=== PATIENT | female | born 1955 | race Caucasian/White ===

== ENCOUNTER 2016-07-22 13:28 | Outpatient (CLI) | payer BC ==
[2016-07-22 18:17] LABS: BASOPHILS % (AUTO) 0.7 %; EOSINOPHILS % (AUTO) 0.9 %; HCT - HEMATOCRIT 42.4 % (37.0-47.0); HGB - HEMOGLOBIN 13.8 g/dL (12.0-16.0); LYMPHOCYTES # (AUTO) 1.3 10^3/uL (1.5-3.5); LYMPHOCYTES % (AUTO) 23.6 %; MEAN CORPUSCULAR HEMOGLOBIN 31.1 pg (27.0-31.0); MEAN CORPUSCULAR HGB CONC 32.6 g/dL (32.0-36.0); MEAN CORPUSCULAR VOLUME 95.4 fL (81.0-99.0); MONOCYTES # (AUTO) 0.4 10^3/uL (0.0-1.0); MONOCYTES % (AUTO) 6.9 %; NEUTROPHILS # (AUTO) 3.6 10^3/uL (1.5-6.6); NEUTROPHILS % (AUTO) 67.9 %; NUCLEATED RED BLOOD CELLS AUTO 0.1 /100WBC; RED BLOOD COUNT 4.44 10^6/uL (4.20-5.40); RED CELL DISTRIBUTION WIDTH 13.2 % (12.0-15.0); UNCORRECTED WHITE BLOOD COUNT 5.4 x10^3/uL; WHITE BLOOD COUNT 5.4 x10^3/uL (4.8-10.8)
[2016-07-22 18:44] LABS: ALBUMIN/GLOBULIN RATIO 1.4 (1.0-2.2); BILIRUBIN,TOTAL 1.2 mg/dL (0.2-1.0); BUN - BLOOD UREA NITROGEN 15 mg/dL (6-20); CALCIUM 9.4 mg/dL (8.5-10.3); CARBON DIOXIDE - CO2 26 mmol/L (21-32); CHLORIDE 104 mmol/L (101-111); CHOL/HDL RATIO 2.3 (<4.4); CHOLESTEROL 235 mg/dL; CREATININE 0.9 mg/dL (0.4-1.0); GFR - MDRD 63 (>89); GLUCOSE 95 mg/dL (70-100); HDL CHOLESTEROL 101 mg/dL; LDL/HDL RATIO 1.2 (<4.4); POTASSIUM 4.1 mmol/L (3.5-5.0); SODIUM 139 mmol/L (135-145); TRIGLYCERIDES 51 mg/dL; VLDL CHOLESTEROL 10 mg/dL
== END 2016-07-22 13:29 | disposition home or self-care (01) ==
LOC: LAB.F 13:28
PROVIDERS: ATTEND Nurse Practitioner Family
DX: Z00.00 Encounter for general adult medical examination without abnormal findings (principal); E55.9 Vitamin D deficiency, unspecified; E78.5 Hyperlipidemia, unspecified
CPT/HCPCS: 36415; 80053; 80061; 82306; 85025

== ENCOUNTER 2016-08-10 11:21 | Outpatient (CLI) | payer BC ==
--- NOTE | 2016-08-11 17:49 | Mammography Report ---
DIGITAL SCREENING MAMMOGRAM: 08/10/2016 CLINICAL INDICATION: A 61-year-old nulliparous patient with family history of breast cancer for scre ening. COMPARISON: 08/2014, 08/2013, 07/2012, 04/2012, 04/2011, 01/2010, 09/2008, 07/2007, 07/2006. TECHNIQUE: Routine CC and MLO projections were obtained of the breasts. FINDINGS: Parenchymal tissue within the breasts is predominantly fatty replaced. There are no domina nt masses, suspicious microcalcifications, or secondary signs of malignancy. In comparison to the pre vious studies, there are no significant changes. IMPRESSION: NO MAMMOGRAPHIC EVIDENCE OF MALIGNANCY. NO SIGNIFICANT INTERVAL CHANGES. RECOMMENDATION: Screening mammography is recommended annually. BI-RADS category 1 - negative. STANDARD QUALIFYING STATEMENTS 1. This examination was reviewed with the aid of Computed-Aided Detection (CAD). 2. A negative or benign imaging report should not delay biopsy if clinically suspicious findings are present. Consider surgical consultation if warranted. More than 5% of cancers are not identified by i maging. 3. Dense breasts may obscure an underlying neoplasm. JOB #: [id number] EXT JOB #:[id number]
== END 2016-08-10 11:22 | disposition home or self-care (01) ==
LOC: DI 11:21
PROVIDERS: ATTEND Nurse Practitioner Family
DX: Z12.31 Encounter for screening mammogram for malignant neoplasm of breast (principal); Z80.3 Family history of malignant neoplasm of breast
CPT/HCPCS: 77067

== ENCOUNTER 2017-08-10 13:22 | Outpatient (CLI) | payer BC ==
[2017-08-10 18:05] LABS: BASOPHILS # (AUTO) 0.1 10^3/uL (0.0-0.1); BASOPHILS % (AUTO) 1.1 %; EOSINOPHILS # (AUTO) 0.1 10^3/uL (0.0-0.7); EOSINOPHILS % (AUTO) 1.4 %; LYMPHOCYTES # (AUTO) 1.3 10^3/uL (1.5-3.5); LYMPHOCYTES % (AUTO) 24.3 %; MEAN CORPUSCULAR HEMOGLOBIN 32.1 pg (27.0-31.0); MEAN CORPUSCULAR VOLUME 97.3 fL (81.0-99.0); MEAN PLATELET VOLUME 9.5 fL (7.9-10.8); MONOCYTES # (AUTO) 0.5 10^3/uL (0.0-1.0); MONOCYTES % (AUTO) 8.6 %; NEUTROPHILS # (AUTO) 3.5 10^3/uL (1.5-6.6); NEUTROPHILS % (AUTO) 64.6 %; PLT - PLATELET COUNT 281 10^3/uL (130-450); RED BLOOD COUNT 4.36 10^6/uL (4.20-5.40); RED CELL DISTRIBUTION WIDTH 13.4 % (12.0-15.0); WHITE BLOOD COUNT 5.5 x10^3/uL (4.8-10.8)
[2017-08-10 18:38] LABS: ALBUMIN 3.7 g/dL (3.2-5.5); ALBUMIN/GLOBULIN RATIO 1.2 (1.0-2.2); ALKALINE PHOSPHATASE 37 IU/L (42-121); ALT ALANINE AMINOTRANSFERASE 17 IU/L (10-60); AST ASPARTATE AMINOTRANSFERASE 22 IU/L (10-42); BILIRUBIN,TOTAL 0.9 mg/dL (0.2-1.0); BUN - BLOOD UREA NITROGEN 13 mg/dL (6-20); CALCIUM 9.4 mg/dL (8.5-10.3); CARBON DIOXIDE - CO2 28 mmol/L (21-32); CHLORIDE 101 mmol/L (101-111); CHOL/HDL RATIO 2.6 (<4.4); CHOLESTEROL 236 mg/dL; CREATININE 0.9 mg/dL (0.4-1.0); GFR - MDRD 63 (>89); GLUCOSE 83 mg/dL (70-100); HDL CHOLESTEROL 90 mg/dL; LDL CHOLESTEROL,CALCULATED 131 mg/dL; LDL/HDL RATIO 1.5 (<4.4); SODIUM 138 mmol/L (135-145); TOTAL PROTEIN 6.9 g/dL (6.7-8.2); VLDL CHOLESTEROL 15 mg/dL
[2017-08-10 19:57] LABS: DIFFERENTIAL COMMENT MANUAL=AUTO DIFF
== END 2017-08-10 13:23 | disposition home or self-care (01) ==
LOC: LAB.F 13:22
PROVIDERS: ATTEND Nurse Practitioner Family
DX: Z00.00 Encounter for general adult medical examination without abnormal findings (principal); E55.9 Vitamin D deficiency, unspecified; E78.5 Hyperlipidemia, unspecified
CPT/HCPCS: 36415; 80053; 80061; 82306; 83721; 85025

== ENCOUNTER 2017-10-21 16:54 | Emergency (ER) | payer BC ==
--- NOTE | 2017-10-21 17:57 | XRAY Report ---
Reason: swelling and pain Procedure Date: 10/21/2017 Accession Number: [id number] / [id number] Procedure: XR - Knee 4 View RT CPT Code: FULL RESULT: EXAM: RIGHT KNEE RADIOGRAPHY EXAM DATE: 10/21/2017 05:31 PM. CLINICAL HISTORY: Right knee pain and swelling COMPARISON: None. TECHNIQUE: 4 views. FINDINGS: Bones: No acute fracture. Mild osteopenia. Joints: Large effusion. Mild medial compartment joint space narrowing and osteophyte formation. Subchondral irregularity in all 3 compartments. No subluxation. Soft Tissues: No focal soft tissue swelling. IMPRESSION: 1. No acute osseus abnormality. Large effusion. 2. Mild tricompartmental osteoarthrosis. RADIA
--- NOTE | 2017-10-21 20:01 | ED Physician Documentation ---
PD HPI LOWER EXT INJURY - Stated complaint Stated Complaint: R KNEE PX - Chief complaint Chief Complaint: Ext Problem - History obtained from History obtained from: Patient - Additional information Additional information: 62-year-old female presents the emergency department with pain and swelling in her right knee for the past several days. The patient was recently on a boat but denies any direct trauma but was doing a significant amount of work on the sailboat. The patient denies pain or swelling in her lower extremity or calf. Symptoms are described as moderate. No relieving factors. No fevers or chills Review of Systems Constitutional: denies: Fever, Chills Ears: denies: Ear pain Nose: denies: Rhinorrhea / runny nose Throat: denies: Sore throat Cardiac: denies: Chest pain / pressure Respiratory: denies: Dyspnea Musculoskeletal: reports: Joint pain, Joint swelling. denies: Extremity pain, Extremity swelling Neurologic: denies: Generalized weakness PD PAST MEDICAL HISTORY - Past Medical History Past Medical History: Yes Cardiovascular: Hypertension Respiratory: Asthma GI: GERD - Past Surgical History Past Surgical History: No - Present Medications Home Medications: Ambulatory Orders Medication Instructions Recorded Confirmed Benzonatate [Tessalon Perle] 100 mg PO Q4-6H PRN #20 capsule 08/27/12 Doxycycline [Vibramycin] 100 mg PO BID #14 tablet 08/27/12 Famotidine 40 mg PO DAILY 08/27/12 08/27/12 Quinapril HCl [Accupril] 20 mg PO DAILY 08/27/12 08/27/12 Spironolactone [Aldactone] 50 mg PO DAILY 08/27/12 08/27/12 guaiFENesin/CODEINE [Robitussin AC] 10 ml PO Q6H PRN #120 ml 08/27/12 predniSONE [Deltasone] 40 mg PO DAILY 5 Days tablet 08/27/12 - Allergies Allergies/Adverse Reactions: Allergies Allergy/AdvReac Type Severity Reaction Status Date / Time No Known Drug Allergies Allergy Verified 10/21/17 17:16 - Social History Does the pt smoke?: No Smoking Status: Never smoker Does the pt drink ETOH?: Yes ETOH Use: Wine Does the pt have substance abuse?: No - Immunizations Immunizations are current?: No Immunizations: TDAP >10years/unknown - POLST Patient has POLST: No PD ED PE NORMAL - General General: Alert and oriented X 3, No acute distress - HEENT HEENT: Atraumatic, PERRL, EOMI, Ears normal - Neck Neck: Supple, no meningeal sign - Derm Derm: Normal color - Extremities Extremities: No calf tenderness / cord, Other (The patient has swelling of the right knee, there is no erythematous changes or signs of abscess. The patient has decreased range of motion in the right knee and tenderness to palpation diffusely. There is no cellulitis or abscess. The patient has a normal dorsalis pedis pulse and normal cap refill. The patient has no swelling of the lower extremity or pain in the calf) - Neuro Neuro: Alert and oriented X 3, No motor deficit Results - Vitals Vitals: Vital Signs - 24 hr 10/21/17 10/21/17 17:11 20:06 Temperature 36.6 C 36.4 C L Heart Rate 68 65 Respiratory 16 16 Rate Blood Pressure 107/62 123/77 O2 Saturation 100 99 Oxygen O2 Source Room air - Rads (name of study) X-ray knee Radiology: Final report received (1. No acute osseus abnormality. Large effusion 2. Mild tricompartmental osteoarthrosis. ) PD MEDICAL DECISION MAKING - ED course ED course: I explained to the patient that spontaneous knee swelling and pain could be from septic arthritis and recommended arthrocentesis. I discussed with the patient the procedure and the lab work required. The patient has declined this. The patient does not feel that this is infectious and prefers discharge and will follow up with orthopedics. I explained to her the risks of an undiagnosed condition and septic arthritis and the possibility of significant disability and potentially . The patient understands and agrees. I discussed warning signs and recommended returning to the emergency department immediately for any worsening or any concerns. - Sepsis Event Vital Signs: Vital Signs - 24 hr 10/21/17 10/21/17 17:11 20:06 Temperature 36.6 C 36.4 C L Heart Rate 68 65 Respiratory 16 16 Rate Blood Pressure 107/62 123/77 O2 Saturation 100 99 Oxygen O2 Source Room air Departure - Departure Disposition: 01 Home, Self Care Clinical Impression: Swelling of knee joint Qualifiers: Laterality: unspecified laterality Qualified Code(s): M25.469 - Effusion, unspecified knee Condition: Good Follow-Up: Loki Bundy MD [Provider Admit Priv/Credential] - (Call to schedule a follow-up appointment) Comments: You declined to have a arthrocentesis (a knee tap)to further evaluate your knee swelling and to rule out an infection of the knee. You understand the risks of the knee infection which could include significant disability, sepsis or . Please return to the emergency department at any point for reevaluation Discharge Date/Time: 10/21/17 20:07
[2017-10-21 20:08] VITALS: BP 123/77
== END 2017-10-21 20:07 | disposition home or self-care (01) ==
LOC: ED 16:54
DX: M25.461 Effusion, right knee (principal); I10 Essential (primary) hypertension
CPT/HCPCS: 99282; 99283

== ENCOUNTER 2018-01-03 13:32 | Outpatient (CLI) | payer BC ==
--- NOTE | 2018-01-05 11:10 | Mammography Report ---
Reason: ANNUAL SCREENING Procedure Date: 01/03/2018 Accession Number: [id number] / [id number] Procedure: ROCKY - Screening Mammo w/[place] CPT Code: FULL RESULT: EXAM: Screening Mammo w/[place] DATE: 01/03/2018 2:20 PM CLINICAL HISTORY: 62 year-old nulliparous female with family history of breast cancer in the mother at age 70 for screening. TECHNIQUE: Bilateral CC and MLO views were obtained. COMPARISON: 08/10/2016, 09/03/2014, 09/21/2013, 04/11/2012. FINDINGS: The breasts demonstrate scattered fibroglandular densities bilaterally. No suspicious masses, clustered microcalcifications, or regions of architectural distortion are identified. IMPRESSION: Negative examination RECOMMENDATION: Routine annual screening unless otherwise clinically indicated. BIRADS CATEGORY 1: Negative STANDARD QUALIFYING STATEMENTS: 1. This examination was not reviewed with the aid of Computer-Aided Detection (CAD). 2. A negative or benign imaging report should not delay biopsy if clinically suspicious findings are present. Consider surgical consultation if warrented. More than 5% of cancers are not identified by imaging. 3. Dense breasts may obscure an underlying neoplasm. 4. This examination was reviewed with the aid of 3D breast imaging (tomosynthesis).
== END 2018-01-03 13:33 | disposition home or self-care (01) ==
LOC: DI 13:32
DX: Z12.31 Encounter for screening mammogram for malignant neoplasm of breast (principal); Z80.3 Family history of malignant neoplasm of breast
CPT/HCPCS: 77063; 77067

== ENCOUNTER 2019-02-08 12:57 | Outpatient (CLI) | payer BC ==
--- NOTE | 2019-02-09 08:00 | Mammography Report ---
Reason: SCREENING MAMMO Procedure Date: 02/08/2019 Accession Number: [id number] / [id number] Procedure: MGS - Screening Mammo Dig Bilat CPT Code: Final Report FULL RESULT: EXAM: Screening Mammo Dig Bilat DATE: 02/08/2019 1:12 PM CLINICAL HISTORY: Screening encounter. Family history of breast cancer in the mother at the age of 70. History of nulliparity. TECHNIQUE: (B) - Bilateral CC and MLO views were obtained. COMPARISON: 01/03/2018 through 09/21/2013. PARENCHYMAL PATTERN: (A) - The breast(s) demonstrate(s) scattered fibroglandular densities. FINDINGS: There are no suspicious masses, calcifications, or areas of distortion. IMPRESSION: Negative examination. BI-RADS category 1. RECOMMENDATION: (ANNUAL) - Recommend routine annual screening mammography. BI-RADS CATEGORY: (1) - Negative. STANDARD QUALIFYING STATEMENTS: 1. This examination was reviewed with the aid of Computer-Aided Detection (CAD). 2. A negative or benign imaging report should not preclude biopsy if clinically suspicious findings are present. 3. Dense breasts may obscure an underlying neoplasm. 4. This examination was reviewed without the aid of 3D breast imaging (tomosynthesis).
== END 2019-02-08 12:58 | disposition home or self-care (01) ==
LOC: DI.S 12:57
PROVIDERS: ATTEND Nurse Practitioner Family
DX: Z12.31 Encounter for screening mammogram for malignant neoplasm of breast (principal); Z80.3 Family history of malignant neoplasm of breast
CPT/HCPCS: 77067

== ENCOUNTER 2019-02-08 13:03 | Outpatient (CLI) | payer BC ==
[2019-02-08 19:03] LABS: BASOPHILS % (AUTO) 0.7 %; EOSINOPHILS # (AUTO) 0.1 10^3/uL (0.0-0.7); EOSINOPHILS % (AUTO) 1.7 %; HGB - HEMOGLOBIN 14.2 g/dL (12.0-16.0); LYMPHOCYTES # (AUTO) 1.2 10^3/uL (1.5-3.5); LYMPHOCYTES % (AUTO) 21.7 %; MEAN CORPUSCULAR HEMOGLOBIN 31.7 pg (27.0-31.0); MEAN CORPUSCULAR HGB CONC 32.9 g/dL (32.0-36.0); MEAN CORPUSCULAR VOLUME 96.4 fL (81.0-99.0); MEAN PLATELET VOLUME 11.1 fL (7.9-10.8); MONOCYTES # (AUTO) 0.5 10^3/uL (0.0-1.0); MONOCYTES % (AUTO) 8.4 %; NEUTROPHILS # (AUTO) 3.8 10^3/uL (1.5-6.6); PLT - PLATELET COUNT 279 10^3/uL (130-450); RED BLOOD COUNT 4.48 10^6/uL (4.20-5.40); RED CELL DISTRIBUTION WIDTH 12.6 % (12.0-15.0); WHITE BLOOD COUNT 5.7 x10^3/uL (4.8-10.8)
[2019-02-08 19:37] LABS: ALBUMIN/GLOBULIN RATIO 1.2 (1.0-2.2); ALKALINE PHOSPHATASE 43 IU/L (42-121); ALT ALANINE AMINOTRANSFERASE 15 IU/L (10-60); AST ASPARTATE AMINOTRANSFERASE 21 IU/L (10-42); BILIRUBIN,TOTAL 1.3 mg/dL (0.2-1.0); BUN - BLOOD UREA NITROGEN 15 mg/dL (6-20); CALCIUM 9.3 mg/dL (8.5-10.3); CARBON DIOXIDE - CO2 26 mmol/L (21-32); CHLORIDE 106 mmol/L (101-111); CHOL/HDL RATIO 2.9 (<4.4); CHOLESTEROL 241 mg/dL; CREATININE 0.9 mg/dL (0.4-1.0); GFR - MDRD 63 (>89); GLUCOSE 108 mg/dL (70-100); HDL CHOLESTEROL 83 mg/dL; LDL CHOLESTEROL,CALCULATED 142 mg/dL; LDL/HDL RATIO 1.7 (<4.4); SODIUM 139 mmol/L (135-145); TOTAL PROTEIN 7.4 g/dL (6.7-8.2); VLDL CHOLESTEROL 16 mg/dL
== END 2019-02-08 13:04 | disposition home or self-care (01) ==
LOC: LAB.S 13:03
PROVIDERS: ATTEND Nurse Practitioner Family
DX: Z00.00 Encounter for general adult medical examination without abnormal findings (principal); E55.9 Vitamin D deficiency, unspecified; E78.5 Hyperlipidemia, unspecified
CPT/HCPCS: 36415; 80053; 80061; 82306; 83721; 85025

== ENCOUNTER 2019-05-01 10:52 | Day surgery (SDC) | payer MEDICARE ==
[2019-05-01] MEDS ORDERED: CEFAZOLIN SODIUM IN 0.9 % NACL 2 GM/100 ML BAG IV ONE (10:57)
[2019-05-01] MEDS ORDERED: LACTATED RINGERS 1,000 ML IV ONE (11:29)
--- NOTE | 2019-05-01 12:39 | ANESTHESIA ---
Pre-Anesthesia VS, & Labs - Diagnosis Left nipple lesion - Procedure Left breast nipple excision of lesion/biopsy Vital Signs: Temp Pulse Resp BP Pulse Ox 36.8 C 74 18 119/73 100 05/01/19 11:06 05/01/19 11:06 05/01/19 11:06 05/01/19 11:06 05/01/19 11:06 Height 5 ft 6 in Weight (kg) 78 kg Body Mass Index 25.8 - NPO >8 hours - Is Patient ?: No Home Medications and Allergies Home Medications: Ambulatory Orders Cholecalciferol (Vitamin D3) [Vitamin D3] 2,000 unit PO DAILY 04/28/19 Lactobacillus Acidophilus [Probiotic Acidophilus] 1 each PO DAILY 04/28/19 Quinapril HCl [Accupril] 20 mg PO DAILY 08/27/12 Spironolactone [Aldactone] 50 mg PO DAILY 08/27/12 Cholecalciferol (Vitamin D3) [Vitamin D3] 2,000 unit PO DAILY 04/28/19 Lactobacillus Acidophilus [Probiotic Acidophilus] 1 each PO DAILY 04/28/19 Allergies/Adverse Reactions: Allergies Allergy/AdvReac Type Severity Reaction Status Date / Time No Known Drug Allergies Allergy Verified 10/21/17 17:16 Anes History & Medical History - Anesthetic History Family history of Anesthesia Complications: Denies Family history of Malignant Hyperthermia: Denies - Medical History Cardiovascular: reports: Hypertension Pulmonary: reports: Asthma (last inhalor use years ago. only active when around cats) Gastrointestinal: reports: GERD Urinary: reports: None Neuro: reports: None Musculoskeletal: reports: None Endocrine/Autoimmune: reports: None Blood Disorders: reports: None Skin: reports: None Smoking Status: Former smoker (quit 30 years ago) Psychosocial: reports: No issues indicated - Surgical History General: Colonoscopy Exam General: Alert, Oriented x3, Cooperative, No acute distress Dental: WNL Mouth Openin Fingerbreadth Neck Mobility: Normal Mallampati classification: IV Thyromental Distance: 4-6 cm Respiratory: Lungs clear, Normal breath sounds, No respiratory distress, No accessory muscle use Cardiovascular: Regular rate, Normal S1, Normal S2, No murmurs Mental/Cognitive Status: Alert/Oriented X3, Normal for patient Plan Anesthesia Type: General Consent for Procedure(s) Verified and Reviewed: Yes Code Status: Attempt Resuscitation ASA classification: 2-Mild systemic disease Is this case an emergency?: No
[2019-05-01] MEDS ORDERED: BUPIVACAINE 0.25% PF 30 ML VIAL ONE (12:47)
[2019-05-01] MEDS ORDERED: PROPOFOL 200 MG/20 ML VIAL IVP ONE (13:00)
[2019-05-01] MEDS ORDERED: PHENYLEPHRINE 10 MG/ML VIAL IV ONE (13:00)
[2019-05-01] MEDS ORDERED: fentaNYL 100 MCG/2 ML VIAL IVP ONE (13:00)
[2019-05-01] MEDS ORDERED: MIDAZOLAM 2 MG/2 ML VIAL IVP ONE (13:00)
[2019-05-01] MEDS ORDERED: ONDANSETRON 4 MG/2 ML VIAL IVP ONE (13:00)
[2019-05-01] MEDS ORDERED: BUPIVACAINE 0.25% PF 30 ML VIAL SUBQ ONE (13:26)
[2019-05-01] MEDS ORDERED: ONDANSETRON 4 MG/2 ML VIAL IVP PRN (13:35)
[2019-05-01] MEDS ORDERED: oxyCODONE 5 MG TABLET PO PRN (13:35)
--- NOTE | 2019-05-01 13:35 | OPERATIVE REPORT ---
Operative Report - General Procedure Date: 05/01/19 Planned Procedure: Left nipple biopsy Pre-Op Diagnosis: Left nipple lesion Procedure Performed: Wedge resection of the left nipple Post Op Diagnosis: Same - Procedure Note Primary Surgeon: Oralia Anesthesia Provider: AMAYA Laurent Anesthesia Technique: General LMA, Local Pathology: Portion of left nipple to pathology in formalin Estimated Blood Loss (mL): 5 Complications: None apparent - Other Other Information/Narrative: After obtaining informed consent, the patient is brought the operating room placed in supine position on the operating table. Following successful induction of general anesthesia, appropriate padding of all bony prominences, and placement of appropriate monitors, the left chest and breast were prepped and draped in the standard surgical fashion. A timeout was held per scope protocol. All elements of the surgical safety checklist were followed before, during, and after the procedure. Following infiltration with local anesthetic create a field block, an elliptical incision was fashioned around the most affected lateral edge of the nipple areolar complex. Approximately 1 cm length of tissue was removed and passed from the table as a specimen for full-thickness biopsy. The wound was then checked for hemostasis. The edges were reapproximated with Vicryl suture and chromic suture was applied to the skin. All sponge, needle, and instrument counts were correct at the conclusion of the case the patient was allowed awaken anesthesia without difficulty and taken to the postanesthesia care unit in good condition.
[2019-05-01 14:19] VITALS: BP 92/55
== END 2019-05-01 10:53 | disposition home or self-care (01) ==
LOC: SDS 10:52
PROVIDERS: ATTEND Surgery
PROC: 0HBX0ZX Excision of Left Nipple, Open Approach, Diagnostic (ICD-10-PCS; principal; 2019-05-01 12:00)
DX: N62 Hypertrophy of breast (principal); Z80.3 Family history of malignant neoplasm of breast; J45.909 Unspecified asthma, uncomplicated; I10 Essential (primary) hypertension; Z87.891 Personal history of nicotine dependence; Z79.899 Other long term (current) drug therapy
CPT/HCPCS: 19101; J0690; J7120

== ENCOUNTER 2020-07-02 08:00 | Outpatient (CLI) | payer MEDICARE ==
[2020-07-02 17:53] LABS: BASOPHILS # (AUTO) 0.1 10^3/uL (0.0-0.1); BASOPHILS % (AUTO) 0.9 %; EOSINOPHILS # (AUTO) 0.1 10^3/uL (0.0-0.7); EOSINOPHILS % (AUTO) 1.5 %; HGB - HEMOGLOBIN 14.2 g/dL (12.0-16.0); LYMPHOCYTES # (AUTO) 1.6 10^3/uL (1.5-3.5); LYMPHOCYTES % (AUTO) 30.5 %; MEAN CORPUSCULAR HEMOGLOBIN 31.5 pg (27.0-31.0); MEAN CORPUSCULAR HGB CONC 32.3 g/dL (32.0-36.0); MEAN CORPUSCULAR VOLUME 97.6 fL (81.0-99.0); MEAN PLATELET VOLUME 11.2 fL (7.9-10.8); MONOCYTES # (AUTO) 0.4 10^3/uL (0.0-1.0); MONOCYTES % (AUTO) 7.2 %; NEUTROPHILS # (AUTO) 3.2 10^3/uL (1.5-6.6); NEUTROPHILS % (AUTO) 59.7 %; PLT - PLATELET COUNT 250 10^3/uL (130-450); RED BLOOD COUNT 4.51 10^6/uL (4.20-5.40); RED CELL DISTRIBUTION WIDTH 12.5 % (12.0-15.0); WHITE BLOOD COUNT 5.3 x10^3/uL (4.8-10.8)
[2020-07-02 18:18] LABS: ALBUMIN 4.4 g/dL (3.2-5.5); ALBUMIN/GLOBULIN RATIO 1.5 (1.0-2.2); ALKALINE PHOSPHATASE 47 IU/L (42-121); ALT ALANINE AMINOTRANSFERASE 14 IU/L (10-60); AST ASPARTATE AMINOTRANSFERASE 20 IU/L (10-42); BILIRUBIN,TOTAL 1.1 mg/dL (0.2-1.0); BUN - BLOOD UREA NITROGEN 18 mg/dL (6-20); CALCIUM 9.5 mg/dL (8.5-10.3); CARBON DIOXIDE - CO2 28 mmol/L (21-32); CHLORIDE 103 mmol/L (101-111); CHOL/HDL RATIO 2.8 (<4.4); CHOLESTEROL 282 mg/dL; GFR - MDRD 55 (>89); GLUCOSE 90 mg/dL (70-100); HDL CHOLESTEROL 99 mg/dL; LDL CHOLESTEROL,CALCULATED 169 mg/dL; LDL/HDL RATIO 1.7 (<4.4); POTASSIUM 4.5 mmol/L (3.5-5.0); SODIUM 142 mmol/L (135-145); TOTAL PROTEIN 7.4 g/dL (6.7-8.2); TRIGLYCERIDES 71 mg/dL; VLDL CHOLESTEROL 14 mg/dL
[2020-07-02 18:21] LABS: THYROID STIMULATING HORMONE 1.07 uIU/mL (0.34-5.60)
[2020-07-03 12:46] LABS: HEPATITIS C ANTIBODY NON-REACTIVE (NON-REACTIVE)
== END 2020-07-02 23:59 | disposition home or self-care (01) ==
LOC: LAB.WCP 08:00
PROVIDERS: ATTEND Registered Nurse
DX: N28.9 Disorder of kidney and ureter, unspecified (principal); I10 Essential (primary) hypertension; J45.909 Unspecified asthma, uncomplicated; Z11.59 Encounter for screening for other viral diseases
CPT/HCPCS: 36415; 80053; 80061; 83721; 84443; 85025; 86803

== ENCOUNTER 2021-04-08 12:49 | Outpatient (CLI) | payer MEDICARE ==
[2021-04-08 15:00] LABS: ALBUMIN 3.9 g/dL (3.2-5.5); ALBUMIN/GLOBULIN RATIO 1.2 (1.0-2.2); ALKALINE PHOSPHATASE 40 IU/L (42-121); ALT ALANINE AMINOTRANSFERASE 14 IU/L (10-60); AST ASPARTATE AMINOTRANSFERASE 22 IU/L (10-42); BILIRUBIN,TOTAL 1.3 mg/dL (0.2-1.0); BUN - BLOOD UREA NITROGEN 16 mg/dL (6-20); CALCIUM 9.1 mg/dL (8.5-10.3); CARBON DIOXIDE - CO2 27 mmol/L (21-32); CHLORIDE 99 mmol/L (101-111); CHOL/HDL RATIO 2.7 (<4.4); CHOLESTEROL 252 mg/dL; GFR - MDRD 55 (>89); GLUCOSE 93 mg/dL (70-100); HDL CHOLESTEROL 93 mg/dL; LDL CHOLESTEROL,CALCULATED 143 mg/dL; LDL/HDL RATIO 1.5 (<4.4); POTASSIUM 4.3 mmol/L (3.5-5.0); SODIUM 136 mmol/L (135-145); TOTAL PROTEIN 7.2 g/dL (6.7-8.2); TRIGLYCERIDES 78 mg/dL; VLDL CHOLESTEROL 16 mg/dL
[2021-04-08 15:06] LABS: BASOPHILS % (AUTO) 0.7 %; EOSINOPHILS # (AUTO) 0.1 10^3/uL (0.0-0.7); EOSINOPHILS % (AUTO) 1.5 %; HCT - HEMATOCRIT 41.3 % (37.0-47.0); HGB - HEMOGLOBIN 13.6 g/dL (12.0-16.0); LYMPHOCYTES # (AUTO) 1.3 10^3/uL (1.5-3.5); LYMPHOCYTES % (AUTO) 21.7 %; MEAN CORPUSCULAR HEMOGLOBIN 31.9 pg (27.0-31.0); MEAN CORPUSCULAR HGB CONC 32.9 g/dL (32.0-36.0); MEAN CORPUSCULAR VOLUME 96.9 fL (81.0-99.0); MONOCYTES # (AUTO) 0.4 10^3/uL (0.0-1.0); MONOCYTES % (AUTO) 7.1 %; NEUTROPHILS # (AUTO) 4.2 10^3/uL (1.5-6.6); NEUTROPHILS % (AUTO) 68.7 %; PLT - PLATELET COUNT 273 10^3/uL (130-450); RED BLOOD COUNT 4.26 10^6/uL (4.20-5.40); RED CELL DISTRIBUTION WIDTH 12.2 % (12.0-15.0); WHITE BLOOD COUNT 6.1 x10^3/uL (4.8-10.8)
[2021-04-08 15:32] LABS: THYROID STIMULATING HORMONE 1.36 uIU/mL (0.34-5.60)
== END 2021-04-08 12:50 | disposition home or self-care (01) ==
LOC: LAB.S 12:49
PROVIDERS: ATTEND Registered Nurse
DX: I10 Essential (primary) hypertension (principal); N28.9 Disorder of kidney and ureter, unspecified; K21.9 Gastro-esophageal reflux disease without esophagitis; J45.909 Unspecified asthma, uncomplicated
CPT/HCPCS: 36415; 80053; 80061; 83721; 84443; 85025

== ENCOUNTER 2021-05-12 14:59 | Outpatient (CLI) | payer MEDICARE ==
--- NOTE | 2021-05-13 08:47 | Mammography Report ---
BILATERAL DIGITAL SCREENING MAMMOGRAM 3D/2D: 05/12/2021 CLINICAL: Routine screening. Family history of breast cancer. Comparison is made to exams dated: 09/21/2013 mammogram, 01/03/2018 mammogram, 08/10/2016 mammogram, 09/03/2014 mammogram, and 02/08/2019 mammogram - [facility]. The tissue of both breast s is predominantly fatty. No significant masses, calcifications, or other findings are seen in either breast. There has been no significant interval change. IMPRESSION: NEGATIVE There is no mammographic evidence of malignancy. A 1 year screening mammogram is recommended. This exam was interpreted at Station ID: [id number]. NOTE: For mammograms, a report in lay terms will be sent to the patient. Approximately 15% of breast malignancies will not be visualized mammographically. In the management of a palpable breast mass, a negative mammogram must not discourage biopsy of a clinically suspicious lesion. Electronically Signed By: Larry Alvarado M.D. aty/[email or web address]:05/13/2021 08:33:43 ACR BI-RADS Category 1: Negative 3341F PARENCHYMAL PATTERN: (F) - The breast(s) demonstrate(s) diffuse fatty replacement. BI-RADS CATEGORY: (1) - 1 RECOMMENDATION: (ANNUAL) - Recommend routine annual screening mammography. [id number] 1 year screening LATERALITY: (B)
== END 2021-05-12 15:00 | disposition home or self-care (01) ==
LOC: DI.S 14:59
PROVIDERS: ATTEND Registered Nurse
DX: Z12.31 Encounter for screening mammogram for malignant neoplasm of breast (principal); Z80.3 Family history of malignant neoplasm of breast

== ENCOUNTER 2021-08-16 17:55 | Outpatient (CLI) | payer MEDICARE ==
[2021-08-16 21:25] LABS: BACTERIAL VAGINOSIS DNA NEGATIVE (NEGATIVE); CANDIDA GLABRATA DNA NEGATIVE (NEGATIVE); CANDIDA GROUP DNA POSITIVE (NEGATIVE); CANDIDA KRUSEI DNA NEGATIVE (NEGATIVE); TRICHOMONAS VAGINALIS DNA NEGATIVE (NEGATIVE)
== END 2021-08-16 17:56 | disposition home or self-care (01) ==
LOC: LAB 17:55
PROVIDERS: ATTEND Registered Nurse
DX: L29.8 Other pruritus (principal)
CPT/HCPCS: 81514

== ENCOUNTER 2021-09-17 08:00 | Outpatient (CLI) | payer MEDICARE ==
--- NOTE | 2021-09-17 13:58 | XRAY Report ---
PROCEDURE: Ribs w/PA Chest LT INDICATIONS: LEFT SIDED RIB PAIN TECHNIQUE: 3 views of the left ribs were acquired, along with a single view chest. COMPARISON: None FINDINGS: Surgical changes and devices: None. Bones and chest wall: No fractures or dislocations. No suspicious bony lesions. Overlying soft tis sues appear unremarkable. Lungs and pleura: No pleural effusions or pneumothorax. Lungs appear clear. Mediastinum: Mediastinal contours appear normal. Heart size is normal. IMPRESSION: Normal AP view of the chest and left ribs. Reviewed by: Zheng Sears on 09/17/2021 1:57 PM PDT Approved by: Zheng Sears on 09/17/2021 1:57 PM PDT Station ID: [id number]
== END 2021-09-17 23:59 | disposition home or self-care (01) ==
LOC: DI.S 08:00
PROVIDERS: ATTEND Registered Nurse
DX: R07.81 Pleurodynia (principal)

== ENCOUNTER 2022-04-09 13:26 | Outpatient (CLI) | payer MEDICARE ==
[2022-04-09 19:44] LABS: BASOPHILS # (AUTO) 0.1 10^3/uL (0.0-0.1); BASOPHILS % (AUTO) 0.9 %; EOSINOPHILS # (AUTO) 0.1 10^3/uL (0.0-0.7); EOSINOPHILS % (AUTO) 0.7 %; HCT - HEMATOCRIT 45.3 % (37.0-47.0); HGB - HEMOGLOBIN 13.8 g/dL (12.0-16.0); LYMPHOCYTES # (AUTO) 1.2 10^3/uL (1.5-3.5); LYMPHOCYTES % (AUTO) 18.4 %; MEAN CORPUSCULAR HEMOGLOBIN 30.9 pg (27.0-31.0); MEAN CORPUSCULAR HGB CONC 30.5 g/dL (32.0-36.0); MEAN CORPUSCULAR VOLUME 101.6 fL (81.0-99.0); MEAN PLATELET VOLUME 11.2 fL (7.9-10.8); MONOCYTES # (AUTO) 0.4 10^3/uL (0.0-1.0); MONOCYTES % (AUTO) 6.4 %; NEUTROPHILS # (AUTO) 4.9 10^3/uL (1.5-6.6); NEUTROPHILS % (AUTO) 73.3 %; PLT - PLATELET COUNT 311 10^3/uL (130-450); RED BLOOD COUNT 4.46 10^6/uL (4.20-5.40); RED CELL DISTRIBUTION WIDTH 13.2 % (12.0-15.0); WHITE BLOOD COUNT 6.7 x10^3/uL (4.8-10.8)
[2022-04-09 20:23] LABS: ALBUMIN/GLOBULIN RATIO 1.3 (1.0-2.2); ALKALINE PHOSPHATASE 49 IU/L (42-121); ALT ALANINE AMINOTRANSFERASE 15 IU/L (10-60); AST ASPARTATE AMINOTRANSFERASE 27 IU/L (10-42); BILIRUBIN,TOTAL 1.3 mg/dL (0.2-1.0); BUN - BLOOD UREA NITROGEN 15 mg/dL (6-20); CALCIUM 9.3 mg/dL (8.5-10.3); CARBON DIOXIDE - CO2 25 mmol/L (21-32); CHLORIDE 102 mmol/L (101-111); CHOL/HDL RATIO 2.3 (<4.4); CHOLESTEROL 233 mg/dL; GFR - MDRD 55 (>89); GLUCOSE 86 mg/dL (70-100); HDL CHOLESTEROL 103 mg/dL; LDL CHOLESTEROL,CALCULATED 122 mg/dL; LDL/HDL RATIO 1.2 (<4.4); POTASSIUM 4.4 mmol/L (3.5-5.0); SODIUM 140 mmol/L (135-145); TOTAL PROTEIN 7.2 g/dL (6.7-8.2); TRIGLYCERIDES 41 mg/dL; VLDL CHOLESTEROL 8 mg/dL
[2022-04-09 20:31] LABS: THYROID STIMULATING HORMONE 0.55 uIU/mL (0.34-5.60)
== END 2022-04-09 13:27 | disposition home or self-care (01) ==
LOC: LAB.S 13:26
PROVIDERS: ATTEND Registered Nurse
DX: I10 Essential (primary) hypertension (principal); Z13.29 Encounter for screening for other suspected endocrine disorder; Z79.899 Other long term (current) drug therapy; Z13.0 Encounter for screening for diseases of the blood and blood-forming organs and certain disorders involving the immune mechanism; Z13.220 Encounter for screening for lipoid disorders
CPT/HCPCS: 36415; 80053; 80061; 83721; 84443; 85025

== ENCOUNTER 2022-07-31 16:44 | Outpatient (CLI) | payer MEDICARE ==
--- NOTE | 2022-07-31 17:12 | XRAY Report ---
PROCEDURE: Cervical Spine 2 View INDICATIONS: CHRONIC NECK PAIN TECHNIQUE: 3 view(s) of the cervical spine were acquired. COMPARISON: None. FINDINGS: Bones: No fractures or dislocations to the T1 level. The lateral masses of C1 appear intact on the odontoid view. No suspicious bony lesions. Moderate to severe cervical spondylitic changes with mul tilevel facet arthropathy and mild multilevel disc height loss with small anterior osteophytes and pr obable uncovertebral joint hypertrophy. Soft tissues: No prevertebral soft tissue swelling. IMPRESSION: Moderate to severe cervical spondylitic change. Reviewed by: Judson Iniguez MD on 07/31/2022 5:11 PM PDT Approved by: Judson Iniguez MD on 07/31/2022 5:11 PM PDT Station ID: [id number]
== END 2022-07-31 23:59 | disposition home or self-care (01) ==
LOC: DI.S 16:44
PROVIDERS: ATTEND Physician Assistant Medical
DX: M47.812 Spondylosis without myelopathy or radiculopathy, cervical region (principal)

== ENCOUNTER 2023-04-13 11:51 | Outpatient (CLI) | payer MEDICARE ==
[2023-04-13 14:36] LABS: BASOPHILS # (AUTO) 0.1 10^3/uL (0.0-0.1); BASOPHILS % (AUTO) 0.8 %; EOSINOPHILS # (AUTO) 0.1 10^3/uL (0.0-0.7); EOSINOPHILS % (AUTO) 1.3 %; HCT - HEMATOCRIT 42.1 % (37.0-47.0); HGB - HEMOGLOBIN 13.5 g/dL (12.0-16.0); LYMPHOCYTES # (AUTO) 1.5 10^3/uL (1.5-3.5); LYMPHOCYTES % (AUTO) 24.8 %; MEAN CORPUSCULAR HEMOGLOBIN 31.6 pg (27.0-31.0); MEAN CORPUSCULAR HGB CONC 32.1 g/dL (32.0-36.0); MEAN CORPUSCULAR VOLUME 98.6 fL (81.0-99.0); MONOCYTES # (AUTO) 0.5 10^3/uL (0.0-1.0); MONOCYTES % (AUTO) 8.9 %; NEUTROPHILS # (AUTO) 3.9 10^3/uL (1.5-6.6); PLT - PLATELET COUNT 311 10^3/uL (130-450); RED BLOOD COUNT 4.27 10^6/uL (4.20-5.40); RED CELL DISTRIBUTION WIDTH 13.1 % (12.0-15.0); WHITE BLOOD COUNT 6.1 x10^3/uL (4.8-10.8)
[2023-04-13 15:13] LABS: ALBUMIN 4.3 g/dL (3.2-5.5); ALBUMIN/GLOBULIN RATIO 1.7 (1.0-2.2); ALKALINE PHOSPHATASE 40 IU/L (42-121); ALT ALANINE AMINOTRANSFERASE 12 IU/L (10-60); AST ASPARTATE AMINOTRANSFERASE 19 IU/L (10-42); BILIRUBIN,TOTAL 1.2 mg/dL (0.2-1.0); BUN - BLOOD UREA NITROGEN 19 mg/dL (6-20); CALCIUM 10.5 mg/dL (8.5-10.3); CARBON DIOXIDE - CO2 30 mmol/L (21-32); CHLORIDE 103 mmol/L (101-111); CHOL/HDL RATIO 2.2 (<4.4); CHOLESTEROL 223 mg/dL; CREATININE 1.2 mg/dL (0.6-1.3); GFR - MDRD 45 (>89); GLUCOSE 90 mg/dL (74-104); HDL CHOLESTEROL 100 mg/dL; LDL CHOLESTEROL,CALCULATED 111 mg/dL; LDL/HDL RATIO 1.1 (<4.4); POTASSIUM 4.9 mmol/L (3.5-4.5); SODIUM 138 mmol/L (135-145); TOTAL PROTEIN 6.9 g/dL (6.4-8.9); TRIGLYCERIDES 61 mg/dL (48-352); VLDL CHOLESTEROL 12 mg/dL
[2023-04-13 15:51] LABS: THYROID STIMULATING HORMONE 1.06 uIU/mL (0.34-5.60)
== END 2023-04-13 11:52 | disposition home or self-care (01) ==
LOC: LAB.S 11:51
PROVIDERS: ATTEND Registered Nurse
DX: Z13.220 Encounter for screening for lipoid disorders (principal); Z79.899 Other long term (current) drug therapy; Z13.29 Encounter for screening for other suspected endocrine disorder
CPT/HCPCS: 36415; 80053; 80061; 83721; 84443; 85025

== ENCOUNTER 2023-04-22 16:56 | Outpatient (CLI) | payer MEDICARE | END 2023-04-22 23:59 | disposition EMS.NT | LOC: EMS 16:56 | DX: M25.512 Pain in left shoulder (principal); W01.0XXA Fall on same level from slipping, tripping and stumbling without subsequent striking against object, initial encounter; Y93.K1 Activity, walking an animal; Y92.89 Other specified places as the place of occurrence of the external cause ==

== ENCOUNTER 2023-04-23 13:32 | Outpatient (CLI) | payer MEDICARE ==
[2023-04-23 20:02] LABS: CALCIUM 11.1 mg/dL (8.5-10.3); CREATININE 1.3 mg/dL (0.6-1.3); POTASSIUM 4.1 mmol/L (3.5-4.5)
[2023-04-27 02:08] LABS: VITAMIN D 25-HYDROXY 75.3 ng/mL (30.0-100.0)
[2023-04-27 18:07] LABS: CALCIUM IONIZED SERUM 5.7 mg/dL (4.5-5.6)
== END 2023-04-23 13:33 | disposition home or self-care (01) ==
LOC: LAB.S 13:32
PROVIDERS: ATTEND Registered Nurse
DX: N18.30 Chronic kidney disease, stage 3 unspecified (principal); E83.52 Hypercalcemia; E87.5 Hyperkalemia
CPT/HCPCS: 36415; 80048; 82306; 82330; 83970

== ENCOUNTER 2023-05-05 14:04 | Outpatient (CLI) | payer MEDICARE ==
--- NOTE | 2023-05-06 07:34 | Mammography Report ---
BILATERAL DIGITAL SCREENING MAMMOGRAM 3D/2D: 05/05/2023 CLINICAL: Routine screening. Family history of breast cancer. Comparison is made to exams dated: 05/12/2021 mammogram, 02/08/2019 mammogram, 01/03/2018 mammogram, a nd 08/10/2016 mammogram - [facility]. There are scattered areas of fibroglandular density in both breasts (category b / 25%-50% glandular t issue). No significant masses, calcifications, or other findings are seen in either breast. There has been no significant interval change. IMPRESSION: NEGATIVE There is no mammographic evidence of malignancy. A 1 year screening mammogram is recommended. Based on the Tyrer Cuzick model (a risk assessment model) the patient's lifetime risk is 10.3% and he r 10 year risk is 6.2%. According to the ACR, ACS, and NCCN guidelines, an annual breast MRI exam meek ng with mammogram is recommended if the patient's lifetime risk is 20% or greater. This exam was interpreted at Station ID: [id number]. NOTE: For mammograms, a report in lay terms will be sent to the patient. Approximately 15% of breast malignancies will not be visualized mammographically. In the management of a palpable breast mass, a negative mammogram must not discourage biopsy of a clinically suspicious lesion. Electronically Signed By: Larry andrade/douglas:05/05/2023 15:59:31 ACR BI-RADS Category 1: Negative 3341F PARENCHYMAL PATTERN: (A) - The breast(s) demonstrate(s) scattered fibroglandular densities. BI-RADS CATEGORY: (1) - 1 RECOMMENDATION: (ANNUAL) - Recommend routine annual screening mammography. [id number] 1 year screening LATERALITY: (B)
== END 2023-05-05 14:05 | disposition home or self-care (01) ==
LOC: DI.S 14:04
PROVIDERS: ATTEND Registered Nurse
DX: Z12.31 Encounter for screening mammogram for malignant neoplasm of breast (principal); R92.323 Mammographic fibroglandular density, bilateral breasts; Z80.3 Family history of malignant neoplasm of breast

== ENCOUNTER 2023-05-11 13:33 | Outpatient (CLI) | payer MEDICARE ==
--- NOTE | 2023-05-11 15:02 | CT Report ---
PROCEDURE: Chest WO INDICATIONS: LEFT RIB PAIN TECHNIQUE: A CT scan of the chest was performed. Intravenous contrast media was not administered. Images were re corded and evaluated at appropriate window settings. Reformats: axial MIP of the chest, coronal and s agittal. For radiation dose reduction, the following was used: automated exposure control, adjustment of mA and/or kV according to patient size. COMPARISON: None. FINDINGS: Image quality: Diagnostic Lungs and pleura:No dense consolidation. No pleural effusions. Mild emphysematous changes. No solid n odules/mass requiring followup per current guidelines if patient is not high risk and has no primary malignancy. Follow-up for micronodules, for example in the right lung image (12/24) is optional for h igh-risk patients. Mediastinum, heart, and esophagus: Mild to moderate hiatal hernia. Normal heart size. Annular calcifi cations. No pathologic lymph nodes by size criteria. Chest wall and thyroid: Unremarkable Upper abdomen: No gross abnormality on these limited noncontrast views. Mildly thickened adrenals. Bones: Degenerative changes, there is an indeterminate sclerotic lesion in the T2 vertebral body aminah uring 8 mm. No displaced rib fracture is identified. IMPRESSION: No pneumothorax. No displaced fracture. Scattered osseous degenerative changes. Clinical followup is recommended. Other findings as above. Reviewed by: Star Lopez MD on 05/11/2023 3:00 PM PDT Approved by: Star Lopez MD on 05/11/2023 3:00 PM PDT Station ID: [id number]
== END 2023-05-11 13:34 | disposition home or self-care (01) ==
LOC: DI 13:33
PROVIDERS: ATTEND Registered Nurse
DX: R07.81 Pleurodynia (principal); E83.52 Hypercalcemia; J43.9 Emphysema, unspecified; M47.814 Spondylosis without myelopathy or radiculopathy, thoracic region; K44.9 Diaphragmatic hernia without obstruction or gangrene

== ENCOUNTER 2023-05-28 11:30 | Outpatient (CLI) | payer MEDICARE ==
[2023-05-28 16:13] LABS: BASOPHILS # (AUTO) 0.1 10^3/uL (0.0-0.1); BASOPHILS % (AUTO) 0.7 %; EOSINOPHILS # (AUTO) 0.1 10^3/uL (0.0-0.7); EOSINOPHILS % (AUTO) 0.9 %; HCT - HEMATOCRIT 40.4 % (37.0-47.0); HGB - HEMOGLOBIN 12.6 g/dL (12.0-16.0); LYMPHOCYTES # (AUTO) 1.8 10^3/uL (1.5-3.5); LYMPHOCYTES % (AUTO) 23.1 %; MEAN CORPUSCULAR HEMOGLOBIN 30.8 pg (27.0-31.0); MEAN CORPUSCULAR HGB CONC 31.2 g/dL (32.0-36.0); MEAN CORPUSCULAR VOLUME 98.8 fL (81.0-99.0); MONOCYTES # (AUTO) 0.6 10^3/uL (0.0-1.0); MONOCYTES % (AUTO) 8.2 %; NEUTROPHILS # (AUTO) 5.1 10^3/uL (1.5-6.6); NEUTROPHILS % (AUTO) 66.7 %; PLT - PLATELET COUNT 362 10^3/uL (130-450); RED BLOOD COUNT 4.09 10^6/uL (4.20-5.40); RED CELL DISTRIBUTION WIDTH 12.3 % (12.0-15.0); WHITE BLOOD COUNT 7.7 x10^3/uL (4.8-10.8)
[2023-05-28 17:29] LABS: ALBUMIN/GLOBULIN RATIO 1.5 (1.0-2.2); CALCIUM 9.9 mg/dL (8.5-10.3); CREATININE 1.5 mg/dL (0.6-1.3); MAGNESIUM 1.9 mg/dL (1.7-2.3); POTASSIUM 4.7 mmol/L (3.5-4.5); TOTAL PROTEIN 6.7 g/dL (6.4-8.9)
== END 2023-05-28 11:31 | disposition home or self-care (01) ==
LOC: LAB.S 11:30
PROVIDERS: ATTEND Registered Nurse
DX: E83.52 Hypercalcemia (principal)
CPT/HCPCS: 36415; 80053; 81599; 83735; 85025

== ENCOUNTER 2023-06-01 15:55 | Outpatient (CLI) | payer MEDICARE | END 2023-06-01 15:56 | disposition home or self-care (01) | LOC: LAB.S 15:55 | PROVIDERS: ATTEND Registered Nurse | DX: N18.30 Chronic kidney disease, stage 3 unspecified (principal); E83.52 Hypercalcemia ==

== ENCOUNTER 2023-06-22 08:00 | Outpatient (CLI) | payer MEDICARE ==
--- NOTE | 2023-06-23 11:40 | XRAY Report ---
PROCEDURE: Shoulder 2+V LT INDICATIONS: PAIN IN LEFT SHOULDER TECHNIQUE: 3 views of the shoulder were acquired. COMPARISON: None. FINDINGS: Bones: No fractures or dislocations. Moderate acromioclavicular joint osteoarthritis and with mild t o moderate glenohumeral joint osteoarthritic changes are seen. No suspicious bony lesions. Visualize d ribs appear intact. Soft tissues: No suspicious soft tissue calcifications. The visualized lungs are within normal limi ts. IMPRESSION: Moderate acromioclavicular joint osseous arthritis and mild to moderate glenohumeral joint osteophyte is. No shoulder fracture or dislocation. Reviewed by: Taco Taylor MD on 06/23/2023 11:39 AM PDT Approved by: Taco Taylor MD on 06/23/2023 11:39 AM PDT Station ID: [id number]
== END 2023-06-22 23:59 | disposition home or self-care (01) ==
LOC: DI.S 08:00
PROVIDERS: ATTEND Registered Nurse
DX: M19.012 Primary osteoarthritis, left shoulder (principal)

== ENCOUNTER 2023-07-12 14:04 | Outpatient (CLI) | payer MEDICARE ==
--- NOTE | 2023-07-12 15:57 | MRI Report ---
Shoulder LT WO CLINICAL HISTORY: 68 years of age, Female, LIMITATION OF JOINT MOVEMENT. Comparison: [Radiograph on 06/22/2023 Technique: Multiplanar, multisequence MRI of the left shoulder was performed without intravenous con trast. IV Contrast: Not Administered. Findings: Somewhat limited evaluation given patient motion. Osseous acromial outlet: Mild degenerative changes of the acromioclavicular joint. Type II acromion o n sagittal imaging. No os acromiale. Large subacromial/subdeltoid bursal fluid. Rotator cuff muscles and tendons: Full-thickness, fullwidth tear of the supraspinatus and infraspinat us at the footprint, with tendon retraction to the level of the glenoid. The teres minor is unremarka ble. Mild tendinosis of the subscapularis, with low-grade interstitial tear. Mild muscle edema of the supraspinatus. Moderate fatty infiltration supraspinatus and infraspinatus. Labral and capsular structures: The visualized labrum appears intact on limited non-arthrogram sequen nanette. No paralabral cyst. Biceps tendon and anchor: The extra-articular biceps tendon in the intra-articular biceps tendon are intact. Osseous and cartilaginous structures: Mild subchondral cystic changes in the greater tuberosity, reac tive. Mild chondral thinning of the humeral head. No acute fracture. Miscellaneous: Small glenohumeral effusion. Mild subcoracoid bursitis. No intra-articular bodies. T he remaining muscles are normal in bulk without evidence of atrophy or edema. IMPRESSION: 1.Large subacromial/subdeltoid bursitis. 2.Full-thickness, fullwidth tear of the supraspinatus and infraspinatus with tendon retraction. 3.Low-grade interstitial tear of the subscapularis. 4.Mild chondrosis of the glenohumeral joint. Reviewed by: Willow Perkins MD on 07/12/2023 3:55 PM PDT Approved by: Willow Perkins MD on 07/12/2023 3:55 PM PDT Station ID: [id number]
== END 2023-07-12 14:05 | disposition home or self-care (01) ==
LOC: DI 14:04
PROVIDERS: ATTEND Registered Nurse
DX: M75.122 Complete rotator cuff tear or rupture of left shoulder, not specified as traumatic (principal); M75.52 Bursitis of left shoulder; E83.52 Hypercalcemia

== ENCOUNTER 2023-07-12 14:05 | Outpatient (CLI) | payer MEDICARE ==
--- NOTE | 2023-07-12 15:38 | DEXA Report ---
PROCEDURE: Dexa Spine and/or Hip INDICATIONS: HYPERCALCEMIA TECHNIQUE: Dual energy x-ray absorptiometry (DXA) was performed on a [employer] System. Regions measur ed are the AP Spine, femoral neck, and if needed forearm. COMPARISON: None FINDINGS: Lumbar Spine: Bone Mineral Density: 1.253 g/cm/cm,T score: 0.6. Left Femoral Neck: Bone Mineral Density: 0.937 g/cm/cm, T score: -0.7. Left Hip: Bone Mineral Density: 0.913 g/cm/cm,T score: -0.7. (T score greater or equal to -1.0: NORMAL) (T score from -1.1 to -2.4: OSTEOPENIA) (T score less than or equal to -2.5 to: OSTEOPOROSIS) Impression: By WHO criteria, this patient has normal bone density. Patients with diagnosis of osteoporosis or osteopenia should have regular bone mineral density assess ment. For those eligible for Medicare, routine testing is allowed once every 2 years. Testing frequ ency can be increased for patients who have rapidly progressing disease or for those who are receivin g medical therapy to restore bone mass. Reviewed by: Blas Arambula MD on 07/12/2023 3:37 PM PDT Approved by: Blas Arambula MD on 07/12/2023 3:37 PM PDT Station ID: [id number]
== END 2023-07-12 14:06 | disposition home or self-care (01) ==
LOC: DI 14:05
PROVIDERS: ATTEND Registered Nurse
DX: E83.52 Hypercalcemia (principal)